=== PATIENT | female | born 1990 | race Caucasian/White ===

== ENCOUNTER → 2020-03-10 | Outpatient (CLI) | payer BC ==
--- NOTE | 2020-03-10 22:28 | MR ---
EXAMINATION TYPE: MR lumbar spine wo con DATE OF EXAM: 03/10/2020 COMPARISON: None HISTORY: Lumbar Pain / Paresthesia CONTRAST: 0 mL intravenous Gadavist. TECHNIQUE: Multiplanar, multisequence images of the lumbar spine were acquired. FINDINGS: L5-S1: Disc desiccation is present. There is a central right paracentral disc herniation with mild co ntact with the exiting right S1 nerve root. Correlate with radicular symptoms. Intimal contact with t he thecal sac without contrast were changes evident. Neural foramen are narrowed on the right due to facet hypertrophy. Mild left foraminal narrowing is present from bulging. L4-L5: No significant disc bulge or disc herniation. No spinal canal stenosis. No foraminal stenosi s. Facet hypertrophy is present without thecal sac compression.. L3-L4: No significant disc bulge or disc herniation. No spinal canal stenosis. No foraminal stenosi s. L2-L3: No significant disc bulge or disc herniation. No spinal canal stenosis. No foraminal stenosi s. L1-L2: No significant disc bulge or disc herniation. No spinal canal stenosis. No foraminal stenosi s. T12-L1: No significant disc bulge or disc herniation. No spinal canal stenosis. No foraminal stenos is. IMPRESSION: 1. Central right paracentral disc herniation L5-S1 with mild contact with the exiting right S1 nerve root. Correlate with the radicular symptoms.
== END | disposition home or self-care (01) ==
LOC: RADMRIMAIN 16:20
PROVIDERS: ATTEND Family Medicine
DX: M51.27 Other intervertebral disc displacement, lumbosacral region (principal)
CPT/HCPCS: 72148

== ENCOUNTER → 2021-01-10 | Outpatient (CLI) | payer BC ==
--- NOTE | 2021-01-12 08:53 | P.ARTDOP ---
Arterial Doppler LOWER EXTREMITY ARTERIAL DOPPLER: DATE OF SERVICE: 01/10/2021 Reason for study: Lower leg numbness. Doppler waveforms: Multiphasic bilaterally throughout to the tibial level with the exception of a poor waveform in the right dorsalis pedis. Pulse volume recording: []. Pressure gradients: None. Ankle-brachial indices: Radial and 1 bilaterally. Toe brachial indices: 0.73 on the right, 0.81 on the left Impression: Normal study.
== END | disposition home or self-care (01) ==
LOC: RADUSWWP 14:06
PROVIDERS: ATTEND Family Medicine
DX: I73.9 Peripheral vascular disease, unspecified (principal)
CPT/HCPCS: 93922

== ENCOUNTER → 2021-06-21 | Outpatient (CLI) | payer OTHER | END | disposition home or self-care (01) | LOC: RADMAMWWP 07:54 | PROVIDERS: ATTEND Family Medicine | DX: Z53.9 Procedure and treatment not carried out, unspecified reason (principal) ==

== ENCOUNTER → 2024-05-05 | Outpatient (CLI) | payer BC, OTHER ==
--- NOTE | 2024-05-13 12:24 | USB ---
Reason for Exam: Clinical finding. Risk Values: Eloise 5 year model risk: 0.2%. NCI Lifetime model risk: 6.8%. Technique: Method: Whole Breast Handheld. Findings: The whole breast of both breasts, the axilla of both breasts and the retroareolar of both breasts were scanned. A complete US of all four quadrants of both breasts, axilla, and retro-areolar region were reviewed. Scattered dense tissues are present throughout. No solid or cystic lesion or axillary lymphadenopathy. Overall Assessment: Benign, BI-RAD 2 Management: Screening Mammogram of both breasts at age 38. A screening mammogram could be performed sooner to establish a baseline. Further clinical management of any breast pain. Patient should continue monthly self breast exams. These results should not preclude additional follow-up of suspicious palpable abnormalities. Results were given to the patient verbally at the time of exam. [facility], , 05/05/2024 2:15 PM. Electronically signed and approved by: Lucia Ivey M.D. Radiologist
== END | disposition home or self-care (01) ==
LOC: RADUSWWP 13:38
PROVIDERS: ATTEND Family Medicine
DX: N64.4 Mastodynia (principal)